=== PATIENT | female | born 1955 | race Caucasian/White ===

== ENCOUNTER → 2021-08-29 09:52 | Outpatient (CLI) | payer OTHER, SELFPAY ==
[2021-08-29 10:48] LABS: COVID19 -Nasal RAPID Negative (Negative)
== END ==
PROVIDERS: Visit Provider Surgery
DX: Z01.812 Encounter for preprocedural laboratory examination (principal); Z20.822 Contact with and (suspected) exposure to COVID-19
CPT/HCPCS: 87635; C9803

== ENCOUNTER 2021-09-01 08:00 | Day surgery (SDC) | payer OTHER, SELFPAY ==
[2021-09-01] VITALS (7 sets, daily range): BP systolic 109–144; BP diastolic 52–73; PULSE 60–81; RESP 9–18; TEMP 36.3–36.8; O2SAT 99–100; BMI 22.9
[2021-09-01] MEDS: LACTATED RINGERS 1,000 ML 200 ML IV (08:29)
--- NOTE | 2021-09-01 08:52 | PM.HP.1 ---
History of Present Illness History of Present Illness Date Patient Seen: 09/01/21 Time Patient Seen: 08:52 Chief complaint: SDC Narrative: The patient presents for colorectal sreening. She has a personal history of colonic polyps. Most recent colonoscopy 2015 significant for polyps. Her brother developed colon cancer. On further history denies any recent gastrointestinal symptoms. No nausea, vomiting, abdominal pain, loss of appetite, unexplained weight loss, change in bowel habits, diarrhea, constipation, melena, hematochezia, or bright red blood per rectum. Patient History Medical History Celiac disease Family & Social History Social History: household members spouse Tobacco & Substance use: Smoking Status Never smoker alcohol intake current alcohol intake frequency a few times a month Substance Use Type does not use Meds Home Medications and Allergies Home Medications Medication Instructions Recorded Confirmed Type alendronate 70 mg tablet (Fosamax) 70 mg PO QWEEK 09/01/21 09/01/21 History ascorbic acid (vitamin C) 500 mg 500 mg PO DAILY 09/01/21 09/01/21 History tablet (Vitamin C) cholecalciferol (vitamin D3) 50 50 mcg PO DAILY 09/01/21 09/01/21 History mcg (2,000 unit) tablet (Vitamin D3) vitamin [id number] acid 1,000 mcg PO 3XW 09/01/21 09/01/21 History zinc 22 mg tablet 20 mg PO DAILY 09/01/21 09/01/21 History Allergies Allergy/AdvReac Type Severity Reaction Status Date / Time No Known Drug Allergies Allergy Verified 08/29/21 16:01 Exam Vital Signs (past 8 hours): - 09/01/21 08:33 Temperature 98.1 F Pulse Rate 81 Respiratory Rate 16 Blood Pressure 144/73 H Pulse Oximetry 100 Oxygen Delivery Method Room Air Narrative Exam Narrative: Constitutional-She is oriented to person, place and time. No apparent distress Cardiovascular- regular rate, no peripheral edema Pulmonary-unlabored respiratory effort, no audible wheezing Abdominal-soft, non-tender, non-distended Musculoskeletal-no cyanosis or clubbing Assessment & Plan Assessment & Plan narrative: The patient requires colorectal screening secondary to history of colonic polyps and of first-degree relative with colon cancer and colonoscopy is recommended. Technical details were discussed. Risks, benefits, alternatives explained. Risks including but not limited to myocardial infarction, aspiration, bleeding, pain, missed lesion, incomplete examination, need for further radiographic studies, colonic perforation, and need for major abdominal surgery were discussed. All questions were answered to their satisfaction, and they are in agreement with this plan. Time Spent With Patient Critical Care time: I spent a total of [] minutes of critical care time on this patient's care today; this time is exclusive of procedural time.
[2021-09-01] MEDS: MIDAZOLAM 5 MG/5 ML VIAL IV (09:15)
[2021-09-01] MEDS: fentaNYL 250 MCG/5 ML INJ IV (09:21)
--- NOTE | 2021-09-01 09:31 | PM.OP.COLON ---
Operative Date/Time/Diagnoses Date of procedure: 09/01/21 Time of procedure: 09:31 Pre-op diagnosis: Family history colon cancer, personal history of colonic polyps Post-op diagnosis: same Procedure & Clinicians Study performed: Colonoscopy Same procedure as scheduled: Yes Indications: Family history of colon cancer Surgeon: Kevyn Rick Procedure Notes Procedure in detail: Medications: Conscious sedation using *mg IV midazolam and *mcg IV of fentanyl The history and physical was performed/updated and the patient is ASA class is *. The procedure was discussed in detail with the patient. Potential risks complications including infection, bleeding, missed diagnosis, perforation, need for surgery, and were explained. Their questions were answered and informed consent was obtained. Patient was brought to the procedure room and placed standard monitoring equipment. The patient's vital signs were monitored continuously throughout the entire procedure. Prior to starting time-out was performed. The patient was placed in the left lateral recumbent position. Procedural sedation was administered. Examination began with a thorough inspection of the perianal area there was no evidence of fissures, fistulae, external hemorrhoids or cutaneous malignancy. The colonoscopy scope was then placed into the anal canal and was advanced to the cecum, which was identified by the ileocecal valve, the appendiceal orifice and the confluence of the taenia. The scope was then slowly withdrawn examining colon thoroughly in all directions, irrigating it of any residual stool. FINDINGS 1. No masses or polyps 2. Tortuous ascending colon The patient tolerated the procedure well. They will be discharged once criteria are met. The prep was of good/excellent quality. The withdrawl time was 6 minutes. The sedation time was 30 minutes. Specimen(s): none sent Complications: none Impression: Normal colonoscopy Post-procedure Recommendations: Colonoscopy in 5 years Disposition: same day surgery
== END 2021-09-01 10:22 | disposition home or self-care (01) ==
PROVIDERS: Referring Provider Surgery; Visit Provider Surgery
PROC: 0DJD8ZZ Inspection of Lower Intestinal Tract, Via Natural or Artificial Opening Endoscopic (ICD-10-PCS; CPT 45378; principal; 2021-09-01 09:15)
DX: Z12.11 Encounter for screening for malignant neoplasm of colon (principal); Z80.0 Family history of malignant neoplasm of digestive organs; Z86.010 Personal history of colon polyps
CPT/HCPCS: G0105; 99152; 99153; J2250; J3010